=== PATIENT | male | born 1945 | race Caucasian/White ===

== ENCOUNTER 2016-08-13 09:19 | Emergency (ER) | payer OTHER, MEDICARE ==
[~2016-08-13] VITALS: Ht 182.9 cm; Wt 123.3 kg
[2016-08-13 11:40] LABS: HEMATOCRIT 45.1 % (38.0-50.0); MCH 28.2 PG (29.0-34.0); MCV 90.9 FL (86-99); MEAN PLAT.VOLUME 11.3 uM^3 (9.0-12.4); PLATELET COUNT 290 K/uL (156-360); RBC DIS.WIDTH-SD 46.8 % (39-53); RED BLOOD COUNT 4.96 M/uL (4.00-5.50); WHITE BLOOD COUNT 8.1 K/uL (4.1-10.2)
[2016-08-13 11:50] LABS: PROTHROMBIN TIME 20.6 (9.2-11.2); PTT 39.7 (25-32)
[2016-08-13 11:56] LABS: CHLORIDE 102 mEq/L (99-109); POTASSIUM 4.9 mEq/L (3.7-5.4); SODIUM 138 mEq/L (136-147)
[2016-08-13 11:58] LABS: GLUCOSE 95 mg/dL (70-99)
[2016-08-13 11:59] LABS: ANION GAP 10 MEQ/L (2-14)
[2016-08-13 12:00] LABS: TOTAL BILIRUBIN 1.5 mg/dL (0.0-1.0)
[2016-08-13 12:01] LABS: ALKALINE PHOSPHATASE 61 IU/L (3-129)
[2016-08-13 12:02] LABS: GFR ESTIMATE (CALCULATED) > 59 mL/min/
[2016-08-13 12:03] LABS: UREA NITROGEN (BUN) 21 mg/dL (9-23)
[2016-08-13 12:05] LABS: TROP-I INTERPRETATION NEGATIVE; TROPONIN-I 0.01 ng/mL (0.0-0.30)
[2016-08-13 13:47] LABS: TROP-I INTERPRETATION NEGATIVE; TROPONIN-I < 0.01 ng/mL (0.0-0.30)
[2016-08-13 14:33] VITALS: BP 127/81
== END 2016-08-13 14:33 | disposition home or self-care (01) ==
LOC: EME 09:19
PROVIDERS: Nurse Practitioner Family
DX: R60.0 Localized edema (principal); I49.3 Ventricular premature depolarization; I11.0 Hypertensive heart disease with heart failure; I50.9 Heart failure, unspecified; E78.5 Hyperlipidemia, unspecified; K21.9 Gastro-esophageal reflux disease without esophagitis; Z86.73 Personal history of transient ischemic attack (TIA), and cerebral infarction without residual deficits; Z87.891 Personal history of nicotine dependence
CPT/HCPCS: 71020; 80053; 83880; 84484; 85027; 85610; 85730; 93005; 99281; 99285